=== PATIENT | male | born 1960 | race Caucasian/White ===

== ENCOUNTER 2018-08-11 11:23 | Day surgery (SDC) | payer OTHER ==
[~2018-08-11 11:23] MED LIST: BALANCED SALT IRRIG OPHTH SOLN 15 ML BOTTLE. ONE; CHONDROIT-SOD-HYALURONATE KIT. ONE; CHONDROITIN-SOD-HYALURONATE 0.5 ML DISP.SYRIN. ONE; HYDROmorphone 2 MG/ML VIAL IV PRN; IV RINGERS,LACTATED 1000ML 1,000 ML IV SCH; LIDOCAINE 1% PF 2 ML VIAL. ID PRN; LIDOCAINE 1% PF 2 ML VIAL. ONE; LIDOCAINE 2% JELLY 6ML IN APPLICATOR. MM SCH; LIDOCAINE 2% JELLY 6ML IN APPLICATOR. ONE; MORPHINE SULFATE 2 MG/ML VIAL. IV PRN; NEO/POLYMYX/DEXAMETH OPHTH OINTMENT 3.5GM TUBE. ONE; ONDANSETRON PF 4 MG/2 ML VIAL. IV PRN; PROCHLORPERAZINE 10 MG/2 ML VIAL. IV PRN; PROPARACAINE 0.5% OPHTH SOLUTION 15ML BOTTLE. OS ONE; fentaNYL PF VIAL 100 MCG/2 ML VIAL IV PRN
[2018-08-11] MEDS: CYCLOPENTOLATE 1% OPTH SOLUTION 2ML BOTTLE. OS SCH ×3 (11:52→12:07)
[2018-08-11] MEDS: PHENYLEPHRINE 10% OPHTH SOLUTION 5ML BOTTLE. OS SCH ×3 (11:52→12:07)
[2018-08-11 14:00] VITALS: BP 131/81
--- NOTE | 2018-08-11 14:13 | OP ---
DATE OF SURGERY: 08/11/2018 PREOPERATIVE DIAGNOSIS: Senile cataract, left eye. POSTOPERATIVE DIAGNOSIS: Senile cataract, left eye. PROCEDURE: Phacoemulsification with posterior chamber lens implant, left eye. ANESTHESIA: Topical with MAC. DESCRIPTION OF PROCEDURE: The patient's dilating and anesthetic drops were applied in the outpatient area and the [place] balloon cuff inflated to 30 mmHg and allowed to act for 10-15 minutes. The patient was then brought to the operating room and left eye prepped and draped in the usual sterile manner for an intraocular procedure. The operating microscope was brought into position and was noted there was good dilation. A paracentesis incision was made inferior temporally and an injection of Phenylid injected into the anterior chamber followed by an injection of Viscoat. A 2.4 mm incision was then made temporally, and a capsulorrhexis was performed about the dilated pupillary border. The lens nucleus was hydrodissected and then slowly phacoemulsified using the phaco handpiece. The cortical material was then cleaned up using the I/A handpiece. Provisc was then used to insufflate the bag and form the anterior chamber and a posterior chamber lens placed in the bag without difficulty. The Provisc was aspirated with the I/A handpiece and then the wound hydrated and the eye pressurized. The wound was checked for leaks, there were none. The speculum and drape were removed, and Maxitrol ointment instilled in the conjunctival sac. The eye was then shielded. The patient was taken to recovery room in satisfactory condition. I will see the patient tomorrow in my office. K LIGIA LOONEY MD DR: KELLEY/betina JOB#: [id number] / [id number]
== END 2018-08-11 14:20 | disposition home or self-care (01) ==
LOC: SURG 11:23
PROVIDERS: ATTEND Ophthalmology
DX: H25.812 Combined forms of age-related cataract, left eye (principal); Z88.0 Allergy status to penicillin; Z88.1 Allergy status to other antibiotic agents; Z98.41 Cataract extraction status, right eye; Z96.1 Presence of intraocular lens; Z98.890 Other specified postprocedural states; Z79.899 Other long term (current) drug therapy
CPT/HCPCS: 66984; A4461; C1780; J0171